=== PATIENT | male | born 1970 | race Two or more races ===

== ENCOUNTER 2017-03-26 08:54 | Emergency (ER) | payer BC, OTHER ==
[~2017-03-26] VITALS: Ht 177.8 cm; Wt 127.0 kg
[2017-03-26 09:52] LABS: Basophils # (auto) 0.1 uL; Basophils % (auto) 1.3 % (0.0-2.0); CONDITION Y; DEFINITIVE SEE PRINTOUT; Eosinophils # (auto) 0.1 uL; Eosinophils % (auto) 1.1 % (0.0-7.0); Hematocrit 31.1 % (41.0-53.0); Hemoglobin 9.8 g/dL (13.5-17.5); Lymphocytes # (auto) 1.9 uL; Lymphocytes % (auto) 20.2 % (10.0-50.0); Mean Corpuscular Hemoglobin 19.9 pg (28.0-32.0); Mean Corpuscular Hgb Conc. 31.3 g/dL (32.0-36.0); Mean Corpuscular Volume 63.5 fL (80.0-100.0); Mean Platelet Volume 7.5 fL (6.9-10.8); Monocytes # (auto) 0.8 uL; Monocytes % (auto) 8.9 % (0.0-12.0); Neutrophils # (auto) 6.3 uL; Neutrophils % (auto) 68.5 % (37.0-80.0); Platelet Count (auto) 493 10^3/uL (140-450); White Blood Cell 9.2 10^3/uL (4.4-10.8)
[2017-03-26 09:53] LABS: Red Cell Distribution Width 20.4 % (11.8-14.3)
[2017-03-26 10:08] LABS: INR 1.05 (0.9-1.15); Partial Thromboplastin Time 28.8 sec (22.64-33.71); Prothrombin Time 11.4 sec (9.37-12.3)
[2017-03-26 10:10] LABS: Albumin 3.4 g/dL (3.4-5.0); Calcium 8.5 mg/dL (8.5-10.1); Potassium 4.3 mmol/L (3.5-5.1)
[2017-03-26 10:13] LABS: BUN/Creatinine Ratio 19.1; Bilirubin, Total 0.4 mg/dL (0.2-1.0); Total Protein 6.8 g/dL (6.4-8.2)
[2017-03-26] MEDS ORDERED: SODIUM CHLORIDE 0.9% 1,000 ML IV ONE (10:31)
[2017-03-26] MEDS ORDERED: NALBUPHINE HCL 10 MG/1ml INJECTION IV ONE (11:00)
[2017-03-26] MEDS ORDERED: PROMETHAZINE HCL 25 MG/ML 1ML IV ONE (11:00)
[2017-03-26 11:49] VITALS: BP 137/62
[2017-03-26 11:53] LABS: Anisocytosis Moderate; Giant Platelets Few; Hypochromia Marked; Microcytosis Marked; Ovalocytes FEW; Platelet Estimate Increased
[2017-03-26 12:10] LABS: Urine RBC None Seen /hpf (0 - 3)
[2017-03-26 12:17] LABS: Urine Bilirubin Negative (Negative); Urine Blood Negative /uL (Negative); Urine Color Yellow (Yellow); Urine Glucose Normal (Normal); Urine Ketone Negative (Negative); Urine Mucus FEW (None Seen); Urine Nitrite Negative (Negative)
[2017-03-26] MEDS ORDERED: cefTRIAXone 1GM/50ML D5W 50 ML IV ONE (13:00)
== END 2017-03-26 13:50 | disposition home or self-care (01) ==
LOC: ER 08:54 → EDBD 08:54 → ER 13:50
DX: I87.8 Other specified disorders of veins (principal); I83.022 Varicose veins of left lower extremity with ulcer of calf; L97.222 Non-pressure chronic ulcer of left calf with fat layer exposed; L03.116 Cellulitis of left lower limb; L03.115 Cellulitis of right lower limb; E11.9 Type 2 diabetes mellitus without complications
CPT/HCPCS: 36415; 71020; 80053; 81001; 83735; 85025; 85610; 85730; 87040; 87077; 87186; 87205; 93005; 94761; 96361; 96365; 96375; 99285; J0696; J2300; J2550; J7030